=== PATIENT | female | born 1995 | race Caucasian/White ===

== ENCOUNTER 2017-07-13 17:53 | Emergency (ER) | payer OTHER ==
[~2017-07-13] VITALS: Ht 175.3 cm; Wt 72.6 kg
[~2017-07-13 17:53] MED LIST: ACETAMINOPHEN-1 EAC1 PO; BACTRIM DS TAB1 EACH PO; BIRTH CONTROL; CIPRO500 M1 PO; CLEOCIN HCL300 MG PO; HYDROCODONE-AP1 EAC6 PO; HYDROXYZINE HCL25 M2 PO; IBUPROFEN 800800 M1 PO; JUNEL FE 1-201 EACH PO; MACRODANTIN50 M1 PO; NORCO 5-325 TA1 EACH PO; OTHER; TRAMADOL 50 MG50 MG PO; TRIAMCINOLONE A80 G2 TOP; ZOFRAN ODT4 MG DISSOLVE; ZOFRAN ODT4 MG PO
[2017-07-13] MEDS ORDERED: KEFLEX500 M1 PO (19:00)
[2017-07-13] MEDS ORDERED: BACTRIM DS TAB1 EACH PO (19:00)
[2017-07-13 19:30] VITALS: BP 121/65
== END 2017-07-13 19:34 | disposition home or self-care (01) ==
LOC: M.ERS 17:53
DX: L02.212 Cutaneous abscess of back [any part, except buttock and flank] (principal)

== ENCOUNTER 2018-11-24 09:23 | Emergency (ER) | payer OTHER ==
[~2018-11-24] VITALS: Ht 170.2 cm; Wt 83.9 kg
[~2018-11-24 09:23] MED LIST changes: +KEFLEX500 M1 PO
[2018-11-24 09:59] LABS: URINE BLOOD NEGATIVE (Negative); URINE CLARITY CLEAR; URINE COLOR YELLOW; URINE GLUCOSE-RANDOM NEGATIVE (Negative); URINE KETONES NEGATIVE (Negative); URINE LEUKOCYTES-REFLEX TRACE (Negative); URINE NITRITE-REFLEX NEGATIVE (Negative); URINE PROTEIN 2+ (Negative); URINE SPECIFIC GRAVITY >= 1.030 (1.005-1.030); URINE UROBILINOGEN 0.2 E.U./dl (0.2-1.0)
[2018-11-24 10:02] LABS: ICTOTEST (BILI CONFIRMATORY) Negative (Negative); URINE BILIRUBIN 1+ (Negative)
[2018-11-24 10:03] LABS: ABSOLUTE EOSINOPHILS 0.1 thou/uL (0.0-0.7); ABSOLUTE LYMPHOCYTES 0.6 thou/uL (0.8-5.3); ABSOLUTE MONOCYTES 0.6 thou/uL (0.0-1.2); ABSOLUTE NEUTROPHILS 3.5 thou/uL (1.6-8.1); BASOPHILS 0.3 %; EOSINOPHILS 1.8 %; HEMATOCRIT 34.8 % (37.0-47.0); HEMOGLOBIN 11.9 gm/dL (12.0-15.0); LYMPHOCYTES 12.6 %; MCH 29.5 pg (26.0-34.0); MCHC 34.1 g/dL (28.0-37.0); MCV 86.4 fL (80.0-100.0); MONOCYTES 12.5 %; MPV 7.9 fl. (7.2-11.1); NUCLEATED RBCS 0 /100WBC; PLATELET COUNT* 191 thou/uL (150-400); POLYS 72.8 %; RBC 4.03 mil/uL (4.20-5.00); RDW-CV 13.7 % (10.5-14.5); WBC 4.9 thou/uL (4.0-11.0)
[2018-11-24 10:10] LABS: CALCIUM 8.3 mg/dL (8.5-10.1); CREATININE 0.8 mg/dL (0.6-1.3); POTASSIUM 3.5 mmol/L (3.5-5.1)
[2018-11-24 10:23] LABS: CASTS None Seen /LPF (None Seen); CRYSTALS None Seen /LPF (None Seen); MUCUS 4-6 Moderate strn/LPF (None Seen); SQUAMOUS 4-10 Moderate /LPF (0-3); URINE RBC 0-2 Rare /HPF (0-2); URINE WBC-REFLEX 6-15 Few /HPF (0-5)
[2018-11-24] MEDS ORDERED: KEFLEX500 M1 PO (11:38)
[2018-11-24] MEDS ORDERED: PYRIDIUM200 MG PO (11:38)
[2018-11-24] MEDS ORDERED: NORCO 5-325 TA1 EAC1 PO (11:42)
[2018-11-24 11:48] VITALS: BP 121/72
== END 2018-11-24 11:49 | disposition home or self-care (01) ==
LOC: M.ERS 09:23
PROVIDERS: Personal Emergency Response Attendant
DX: N39.0 Urinary tract infection, site not specified (principal); R11.2 Nausea with vomiting, unspecified